=== PATIENT | female | born 1945 | race Caucasian/White ===

== ENCOUNTER 2019-09-30 10:42 | Emergency (ER) | payer MEDICARE ==
--- NOTE | 2019-09-30 13:43 | UC ---
General HPI - HPI Summary HPI Summary: States she has felt unwell for 2 weeks. cold s/s, mucus productive cough, congestion, ringing in ears. No fever. No SOB or CP. No N/V. Has had some diarrhea. has been taking ibuprofen, nyquil and dayquil. Not getting worse but not improving after two weeks. No smoking or inhaler history. States she is hot and cold all the time. Meds: reviewed - History of Current Complaint Chief Complaint: UCGeneralIllness Stated Complaint: FEVER,COLD SYMPTOMS Time Seen by Provider: 09/30/19 13:21 Pain Intensity: 0 - Allergy/Home Medications Allergies/Adverse Reactions: Allergies Allergy/AdvReac Type Severity Reaction Status Date / Time ENVIRONMENTAL/SEASONAL Allergy RIGHT EYE Uncoded 09/30/19 12:15 HAYFEVER SLIGHTLY SWOLLEN AND BLADIMIR Home Medications: Home Medications ALPRAZolam TAB* [Xanax TAB*] 0.25 mg PO TID PRN 09/30/19 [History Confirmed 12/14] Amoxicillin/Clavulanate TAB* [Augmentin TAB 875*] 875 mg PO BID #10 tab [Rx] Atorvastatin* [Lipitor*] 10 mg PO DAILY 09/30/19 [History Confirmed 09/30/19] Benzonatate CAP* [Tessalon 100 MG CAP*] 100 mg PO TID PRN #30 cap 09/30/19 [Rx] Gabapentin CAP(*) [Neurontin 300 CAP(*)] 300 mg PO TID PRN 09/30/19 [History Confirmed 09/30/19] Levothyroxine TAB* [Synthroid TAB*] 75 mcg PO DAILY 09/30/19 [History Confirmed 09/30/19] Lisinopril TAB* [Prinivil TAB*] 5 mg PO DAILY 09/30/19 [History Confirmed ] Memantine TAB* [Namenda TAB*] 5 mg PO BID 09/30/19 [History Confirmed 09/30/19] Metoprolol Succinate XL TAB* [Toprol XL TAB*] 25 mg PO DAILY 09/30/19 [History Confirmed 09/30/19] Venlafaxine EXT RELEASE CAP* [Effexor Xr CAP*] 150 mg PO DAILY 09/30/19 [ History Confirmed 09/30/19] busPIRone TAB* [Buspar TAB*] 10 mg BID 09/30/19 [History Confirmed 09/30/19] metFORMIN* [Glucophage 500 MG TAB *] 500 mg PO BID 09/30/19 [History Confirmed 09/30/19] PMH/Surg Hx/FS Hx/Imm Hx Previously Healthy: Yes Endocrine History: Diabetes, Thyroid Disease, Dyslipidemia Cardiovascular History: Hypertension - Surgical History Surgical History: Yes Surgery Procedure, Year, and Place: 1957 RIGHT KNEE SURGERY, [facility] (no implants). 1967 CYSTS REMOVED FROM BILATERAL BREAST, [place]. 1954 TONSILLECTOMY, [place]. 2005 LUMPECT[place]Y RIGHT BREAST, [place]. 2000 LEFT KNEE SURGERY, [place] 1966 [place] 2012 LEFT BREASTMASTECTOMY, [facility], [facility] [place]. CATARACTS. CHOLECYSTECTOMY. bilateral [facility] ([facility] and [place] 2012 ) talked with dr toth and he okayed her to have the mri on 05/04/19 1505 - Social History Alcohol Use: None Substance Use Type: None Smoking Status (MU): Never Smoked Tobacco Have You Smoked in the Last Year: No - Immunization History Most Recent Influenza Vaccination: 2011 Most Recent Tetanus Shot: UNKNOWN Most Recent Pneumonia Vaccination: never Review of Systems All Other Systems Reviewed And Are Negative: Yes Physical Exam Triage Information Reviewed: Yes Appearance: Other: - mildl ill appearing Vital Signs: Initial Vital Signs Temp 98.1 F 09/30/19 12:12 Pulse 58 09/30/19 12:12 Resp 19 09/30/19 12:12 BP 125/47 09/30/19 12:12 Pulse Ox 100 09/30/19 12:12 ENT: Positive: Pharyngeal erythema, Nasal congestion Neck: Positive: Supple, Nontender Respiratory: Positive: Decreased breath sounds, Other: - rhonchi over right lungs. patient got dizzy with deep breaths Cardiovascular: Positive: RRR, Other: - systolic murmur heard throughout Course/Dx - Course Course Of Treatment: This is a 73 yr old with cold s/s for 2 weeks CXR: hyperinflation, consisten with COPD Rapid flu:: negative Dizzy but not orthostatic Ambulated to xray without any issues or dizziness Plan Recommend to continue to drink plenty of fluids Your blood pressure is low normal and with your dizziness would recommend you discontinue your lisinopril for now and follow up with your PCP to determine if it is safe to resume it Recommend starting Augmetin as prescribed Tessalon pearls as needed for cough If symptoms persist or worsen, recommend follow up with PCP or return to urgent care or the ER - Diagnoses Provider Diagnosis: Pneumonia Discharge ED - Sign-Out/Discharge Documenting (check all that apply): Patient Departure All imaging exams completed and their final reports reviewed: Yes - Discharge Plan Condition: Fair Disposition: HOME Prescriptions: Amoxicillin/Clavulanate TAB* [Augmentin TAB 875*] 875 mg PO BID #10 tab Benzonatate CAP* [Tessalon 100 MG CAP*] 100 mg PO TID PRN #30 cap PRN Reason: Cough Patient Education Materials: Pneumonia (ED) Referrals: Yadiel Cano MD [Primary Care Provider] - Additional Instructions: Recommend to continue to drink plenty of fluids Your blood pressure is low normal and with your dizziness would recommend you discontinue your lisinopril for now and follow up with your PCP to determine if it is safe to resume it Recommend starting Augmetin as prescribed Tessalon pearls as needed for cough If symptoms persist or worsen, recommend follow up with PCP or return to urgent care or the ER - Billing Disposition and Condition Condition: FAIR Disposition: Home
[2019-09-30 13:45] LABS: Influenza A Molecular Negative (Negative); Influenza B Molecular Negative (Negative)
[2019-09-30 14:13] VITALS: BP 108/55
== END 2019-09-30 14:28 | disposition home or self-care (01) ==
LOC: UCCORT 10:42
DX: J18.9 Pneumonia, unspecified organism (principal); R91.8 Other nonspecific abnormal finding of lung field; R19.7 Diarrhea, unspecified; E11.9 Type 2 diabetes mellitus without complications; I10 Essential (primary) hypertension; E78.5 Hyperlipidemia, unspecified; E07.9 Disorder of thyroid, unspecified; Z91.09 Other allergy status, other than to drugs and biological substances; Z79.899 Other long term (current) drug therapy; Z79.890 Hormone replacement therapy; Z79.84 Long term (current) use of oral hypoglycemic drugs; Z96.653 Presence of artificial knee joint, bilateral
CPT/HCPCS: 71046; 99212; G0463